=== PATIENT | male | born 1980 | race Caucasian/White ===

== ENCOUNTER 2018-03-01 00:12 | Emergency (ER) | payer OTHER ==
[2018-03-01] MEDS: IBUPROFEN 600 MG TAB PO (01:04)
== END 2018-03-01 02:30 | disposition home or self-care (01) ==
LOC: FTE 00:12
DX: M25.562 Pain in left knee (principal); M25.552 Pain in left hip
CPT/HCPCS: 29505; 73510; 73562; 99284-25